=== PATIENT | male | born 1980 | race African-American/Black ===

== ENCOUNTER 2017-09-27 10:44 | Emergency (ER) | payer OTHER ==
[~2017-09-27] VITALS: Ht 185.4 cm; Wt 120.2 kg
[2017-09-27] MEDS ORDERED: MORPHINE SULFATE 4 MG/ML SYR IV STA (11:00)
[2017-09-27] MEDS ORDERED: SODIUM CHLORIDE 0.9% 1000ML 1,000 ML IV STA (11:00)
[2017-09-27] MEDS ORDERED: ONDANSETRON HCL INJ 2 MG/ML VIAL IV STA (11:00)
[2017-09-27 13:49] VITALS: BP 122/74
== END 2017-09-27 14:10 | disposition home or self-care (01) ==
LOC: FSED 10:44
DX: R10.31 Right lower quadrant pain (principal); R11.2 Nausea with vomiting, unspecified; K42.9 Umbilical hernia without obstruction or gangrene
CPT/HCPCS: 74177; 80053; 81003; 85025; 99283; J2270; J2405; J7030